=== PATIENT | female | born 1995 | race Caucasian/White ===

== ENCOUNTER 2021-10-15 17:39 | Emergency (ER) | payer OTHER ==
[~2021-10-15] VITALS: Ht 175.3 cm; Wt 78.5 kg
[~2021-10-15 17:39] MED LIST: ATABEX DHA CAP1 EACH; FOLIC ACID 2.51 EACH; PERCOCET 5/3251 TAB PO
[2021-10-15] MEDS ORDERED: MACRODANTIN100 M1 PO (20:59)
== END 2021-10-15 21:04 | disposition home or self-care (01) ==
LOC: ER 17:39
DX: O21.0 Mild hyperemesis gravidarum (principal); Z34.01 Encounter for supervision of normal first pregnancy, first trimester

== ENCOUNTER 2022-01-31 13:40 | Outpatient (CLI) | payer OTHER ==
[~2022-01-31 13:40] MED LIST changes: +MACRODANTIN100 M1 PO
== END 2022-01-31 14:43 | disposition home or self-care (01) ==
LOC: NST 13:40
PROVIDERS: ATTEND Specialist
DX: Z34.82 Encounter for supervision of other normal pregnancy, second trimester (principal)

== ENCOUNTER 2022-04-29 20:41 | Inpatient (IN) | payer OTHER ==
[~2022-04-29] VITALS: Ht 175.3 cm; Wt 99.8 kg
[2022-04-29] MEDS ORDERED: PRENATAL TABLE1 EAC1 (21:25)
== END 2022-05-02 17:27 | disposition home or self-care (01) | DRG 786 ==
LOC: SURG-SUITE 20:41 → LDR 20:41 → SURG-SUITE 04-30 00:12
PROVIDERS: ADMIT Specialist; ATTEND Specialist
PROC: 4A1HXCZ Monitoring of Products of Conception, Cardiac Rate, External Approach (ICD-10-PCS; 2022-04-29)
PROC: 10D00Z1 Extraction of Products of Conception, Low, Open Approach (ICD-10-PCS; principal; 2022-04-29 22:00)
DX: O34.211 Maternal care for low transverse scar from previous cesarean delivery (principal); O60.14X0 Preterm labor third trimester with preterm delivery third trimester, not applicable or unspecified; O24.410 Gestational diabetes mellitus in pregnancy, diet controlled; Z3A.36 36 weeks gestation of pregnancy; Z37.0 Single live birth; Z20.822 Contact with and (suspected) exposure to COVID-19

== ENCOUNTER 2023-09-18 23:29 | Emergency (ER) | payer OTHER ==
[~2023-09-18] VITALS: Ht 175.3 cm; Wt 83.9 kg
[~2023-09-18 23:29] MED LIST changes: +PRENATAL TABLE1 EAC1
[2023-09-19 00:59] LABS: HEMATOCRIT 39.7 % (36.0-45.00); HEMOGLOBIN 13.5 g/dL (12.0-15.00); MEAN CELL VOLUME 83.7 fL (80.00-100.00); MEAN CORPUSCULAR HEMOGLOBIN 28.5 pg (27.00-32.0); MEAN CORPUSCULAR HGB CONC 34.1 g/dl (32.0-36.0); PLATELET COUNT 218 K/uL (150-450); RED BLOOD COUNT 4.74 M/uL (4.00-6.00); RED CELL DISTRIBUTION WIDTH 13.9 % (11.5-14.5)
[2023-09-19 01:26] LABS: CALCIUM 8.8 mg/dL (8.5-10.1); CREATININE SERUM 0.7 mg/dL (0.55-1.02); GFR 98.93; POTASSIUM 4.03 mEq/L (3.5-5.1)
== END 2023-09-19 | disposition home or self-care (01) ==
LOC: ER 23:30
DX: K52.9 Noninfective gastroenteritis and colitis, unspecified (principal)